=== PATIENT | female | born 1980 | race Caucasian/White ===

== ENCOUNTER 2017-10-07 16:00 | Outpatient (RCR) | payer OTHER, SELFPAY ==
--- NOTE | 2017-09-10 18:52 | HP.PTEVAL_ITS ---
Patient's Visit Information JANE OBANDO is a 37 year old F referred to Physical Therapy by Mahsa Ramirez DO with a diagnosis of LBP, DDD. Date of Evaluation: 09/10/17 Physical Therapist: Doni Porter DPT, [place] - Visit Plan Frequency: 2x /Week Duration: 4-6 Weeks Plan: 2x/week for 4-6 weeks, (pt's limited availability due to work keeps her from being completely aquatic, will do one land and one water appointment each week). Focus on NS core strength, LE strength and posture/ body mechanics. Work in Hip flexor/piriformis and gastroc stretches. Progress all to I HEP/ community water program. - Subjective Subjective: Has DDD L5s1 and bulging L5. 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 She had to bend alot at work at that time adn got sore in back. Had some symptoms up to 5 years prior. Pain is in LB and lateral hips and at times into front of legs climbing stairs. Hurts to walk backwards when mopping at work. L leg feels like it is just there Has been in pain mangement for a long time , has had epidural injections and was on toradol for 5 day. Epidurals help for about three months. Feels pressure with sitting. Has TENS unit and uses it at work but the pads fall off from sweat and movement. HEP: none, had PT with traction and dryneedle at [facility]. Sleep is interrupted alot due to pain especially on L hip when on L side. Lies on heating pad. Work at [employer] and on concrete 8-12 hours day 5+ days per week. Does basic ADLS but they hurt. Worse sitting. Enjoys walking but can't due to pain. They want to do surgery at [facility] but she wants to try other options. - Pain LB and into hips Pain Intensity (Out of 10): 2 Pain Intensity Range: 0, 7 - Objective Walks with stiff spine and very little movement but I, transfers I but slow and bed transfers show signs of pain. Tends to sit hunched forward and take weight off spine putting it through UE. Most notable is patient always hesitant to move and keeps spine stiff. L/S AROM ext max limited and pain R LB, R SB painful and mod limited, L SB full and min pain, flexion min limited. has excessive lordotic posture segmentall in mid L/S. reflexes patella and achilles 2/3 B. Sensation L LE seems less than R throughout to patient. strength LE 4- in hips and 4 in knees and ankles without myotomal problems. Flex limited in hip flexors and gastroc and HS adn piri moderately. Repeated flexion seems to wrosen. Repeated NS pelvic tilt feels better. Tender to PA pressure mid L/S. Steps give pain in L hip but able with one rail reciprocally. - Goals Goal 1:: Pain 0-2/10 at all times and 50% improved overall Goal Time Frame: 4-6 Weeks Goal 2:: I approp home/pool baed ex program for ROM/stretch and strenghten. Goal Time Frame: 4-6 Weeks Goal 3:: Pt sleep without interruption from pain. Goal Time Frame: 4-6 Weeks - Rehabilitation Potential Physical Therapy Diagnosis: Degenerative chagnes in L/S causing chronic pain and instability. Rehabilitation Potential: Fair - Anticipated Interventions Patient/Client Instruction: Educate patient on: Condition, Plan of Care For the Purpose of:: To decrease pain, To improve muscle performance and motor function, To improve ability of physical actions for home/community/work/leisure Therapeutic Exercise to Include: Strength training, Flexibilty training, In an aquatic setting, Dynamic Lumbar Stabilization For the Purpose of:: To decrease pain, To improve muscle performance and motor function, To improve ability to perform ADL's, To improve ability of physical actions for home/community/work/leisure Thank you for the opportunity to evaluate your patient. For Medicare and Medicare HMO plans, please review the plan of care and approve it. It will need to be FAXED BACK to us at [phone] for Medicare purposes. Please let me know if there are questions or concerns regarding this plan of care. Physician Signature: Date:
--- NOTE | 2017-12-29 19:16 | HP.PT.NRP ---
HP - Discharge Summary (1) - Patient Information JANE OBANDO was seen in my office for initial evaluation on 09/10/17. The following Plan of Care was established for this patient: Initial Frequency: 2x /Week Initial Duration: 4-6 Weeks - Anticipated Interventions Patient/Client Instruction: Educate patient on: Condition, Plan of Care For the Purpose of:: To decrease pain, To improve muscle performance and motor function, To improve ability of physical actions for home/community/work/leisure Therapeutic Exercise to Include: Strength training, Flexibilty training, In an aquatic setting, Dynamic Lumbar Stabilization For the Purpose of:: To decrease pain, To improve muscle performance and motor function, To improve ability to perform ADL's, To improve ability of physical actions for home/community/work/leisure This patient was last seen in our office 10/07/17. Pertinent comments regarding their Physical therapy will appear below: Pt seen 6 visits of her plan of care and was doing wella t last visit. She cancelled her last scheduled visits without rescheduling and at this point it has been over two months adn I will discontinue due to nonattendance. At this point I will be discontinuing this patient from physical therapy. I would be happy to see this patient again in the future if found appropriate by the physician. Thank you! Doni Porter, DPT, [place]
== END 2017-10-07 19:00 | disposition home or self-care (01) ==
LOC: PT 16:00
PROVIDERS: Visit Provider Anesthesiology Pain Medicine
DX: M81.0 Age-related osteoporosis without current pathological fracture (principal); M15.9 Polyosteoarthritis, unspecified; M46.96 Unspecified inflammatory spondylopathy, lumbar region; M54.16 Radiculopathy, lumbar region; M51.36 Other intervertebral disc degeneration, lumbar region; M79.1 Myalgia; Q76.2 Congenital spondylolisthesis; M54.9 Dorsalgia, unspecified
CPT/HCPCS: 97035; 97110; 97113; 97162